=== PATIENT | female | born 1960 | race American Indian/Alaskan Native ===

== ENCOUNTER 2016-08-19 10:16 | Outpatient (CLI) | payer OTHER | END 2016-08-19 10:17 | disposition home or self-care (01) | DX: Z00.00 Encounter for general adult medical examination without abnormal findings (principal); R31.9 Hematuria, unspecified ==

== ENCOUNTER 2016-08-29 10:16 | Outpatient (CLI) | payer OTHER | END 2016-08-29 10:17 | disposition home or self-care (01) | DX: R31.9 Hematuria, unspecified (principal) ==

== ENCOUNTER 2017-02-25 11:20 | Outpatient (CLI) | payer OTHER ==
--- NOTE | 2017-02-26 15:41 | Mammography Report ---
DIGITAL SCREENING MAMMOGRAM: 02/25/2017 CLINICAL INDICATION: A 56-year-old, for screening. COMPARISON: 10/2015, 07/2014, 02/2013. TECHNIQUE: Routine CC and MLO projections were obtained of the breasts. FINDINGS: Scattered fibroglandular tissue is present within the breasts. There are no dominant jesus s, suspicious microcalcifications, or secondary signs of malignancy. In comparison to the previous st udies, there are no significant changes. ASSESSMENT: NO MAMMOGRAPHIC EVIDENCE OF MALIGNANCY. NO SIGNIFICANT INTERVAL CHANGES. RECOMMENDATION: Screening mammography is recommended annually. BIRADS category 1 - negative. STANDARD QUALIFYING STATEMENTS 1. This examination was reviewed with the aid of Computed-Aided Detection (CAD). 2. A negative or benign imaging report should not delay biopsy if clinically suspicious findings are present. Consider surgical consultation if warranted. More than 5% of cancers are not identified by i maging. 3. Dense breasts may obscure an underlying neoplasm. JOB #: [id number] EXT JOB #:[id number]
== END 2017-02-25 11:21 | disposition home or self-care (01) ==
LOC: DI.N 11:20
PROVIDERS: ATTEND Family Medicine
DX: Z12.31 Encounter for screening mammogram for malignant neoplasm of breast (principal)
CPT/HCPCS: 77067

== ENCOUNTER 2018-04-16 09:45 | Outpatient (CLI) | payer OTHER ==
--- NOTE | 2018-04-17 12:31 | Mammography Report ---
Reason: MAMMOGRAM YEARLY SCREENING Procedure Date: 04/16/2018 Accession Number: [id number] / [id number] Procedure: MGN - Screening Mammo Dig Bilat CPT Code: FULL RESULT: EXAM: Screening Mammo Dig Bilat DATE: 04/16/2018 10:19 AM CLINICAL HISTORY: 58-year-old female with history of early menses. TECHNIQUE: Bilateral CC, laterally exaggerated CC, MLO views were obtained. COMPARISON: 02/25/2017, 10/20/2015, 07/26/2014, 02/16/2013. FINDINGS: The breasts demonstrate heterogeneously dense fibroglandular parenchyma bilaterally. No suspicious masses, clustered microcalcifications, or regions of architectural distortion are identified. IMPRESSION: Negative examination RECOMMENDATION: Routine annual screening unless otherwise clinically indicated. BIRADS CATEGORY 1: Negative STANDARD QUALIFYING STATEMENTS: 1. This examination was reviewed with the aid of Computer-Aided Detection (CAD). 2. A negative or benign imaging report should not delay biopsy if clinically suspicious findings are present. Consider surgical consultation if warrented. More than 5% of cancers are not identified by imaging. 3. Dense breasts may obscure an underlying neoplasm. 4. This examination was reviewed without the aid of 3D breast imaging (tomosynthesis).
== END 2018-04-16 09:46 | disposition home or self-care (01) ==
LOC: DI.N 09:45
PROVIDERS: ATTEND Physician Assistant
DX: Z12.31 Encounter for screening mammogram for malignant neoplasm of breast (principal)
CPT/HCPCS: 77067

== ENCOUNTER 2018-10-06 08:00 | Outpatient (CLI) | payer OTHER ==
[2018-10-06 12:51] LABS: HEMOGLOBIN A1C 0.51 g/dL; HEMOGLOBIN A1C % 5.3 % (4.6-6.2)
[2018-10-06 12:54] LABS: BASOPHILS # (AUTO) 0.1 10^3/uL (0.0-0.1); BASOPHILS % (AUTO) 1.5 %; EOSINOPHILS # (AUTO) 0.3 10^3/uL (0.0-0.7); EOSINOPHILS % (AUTO) 3.6 %; HGB - HEMOGLOBIN 13.8 g/dL (12.0-16.0); LYMPHOCYTES # (AUTO) 2.1 10^3/uL (1.5-3.5); LYMPHOCYTES % (AUTO) 26.3 %; MEAN CORPUSCULAR HEMOGLOBIN 30.7 pg (27.0-31.0); MEAN CORPUSCULAR HGB CONC 33.3 g/dL (32.0-36.0); MEAN CORPUSCULAR VOLUME 92.1 fL (81.0-99.0); MEAN PLATELET VOLUME 8.3 fL (7.9-10.8); MONOCYTES # (AUTO) 0.4 10^3/uL (0.0-1.0); NEUTROPHILS # (AUTO) 5.1 10^3/uL (1.5-6.6); NEUTROPHILS % (AUTO) 63.6 %; PLT - PLATELET COUNT 231 10^3/uL (130-450); RED BLOOD COUNT 4.49 10^6/uL (4.20-5.40); RED CELL DISTRIBUTION WIDTH 13.8 % (12.0-15.0)
[2018-10-06 12:57] LABS: ALBUMIN 3.8 g/dL (3.2-5.5); ALBUMIN/GLOBULIN RATIO 1.1 (1.0-2.2); ALKALINE PHOSPHATASE 65 IU/L (42-121); ALT ALANINE AMINOTRANSFERASE 28 IU/L (10-60); AST ASPARTATE AMINOTRANSFERASE 25 IU/L (10-42); BILIRUBIN,TOTAL 0.8 mg/dL (0.2-1.0); BUN - BLOOD UREA NITROGEN 14 mg/dL (6-20); CALCIUM 9.1 mg/dL (8.5-10.3); CARBON DIOXIDE - CO2 27 mmol/L (21-32); CHLORIDE 105 mmol/L (101-111); CHOLESTEROL 194 mg/dL; CREATININE 0.7 mg/dL (0.4-1.0); GFR - MDRD 86 (>89); GLUCOSE 97 mg/dL (70-100); HDL CHOLESTEROL 49 mg/dL; LDL CHOLESTEROL,CALCULATED 123 mg/dL; LDL/HDL RATIO 2.5 (<4.4); SODIUM 140 mmol/L (135-145); TOTAL PROTEIN 7.4 g/dL (6.7-8.2); VLDL CHOLESTEROL 22 mg/dL
== END 2018-10-06 23:59 | disposition home or self-care (01) ==
LOC: LAB.WCP 08:00
PROVIDERS: ATTEND Family Medicine
DX: R73.01 Impaired fasting glucose (principal); E78.6 Lipoprotein deficiency; E78.5 Hyperlipidemia, unspecified; E03.9 Hypothyroidism, unspecified; M25.50 Pain in unspecified joint; R61 Generalized hyperhidrosis; K21.9 Gastro-esophageal reflux disease without esophagitis; R42 Dizziness and giddiness
CPT/HCPCS: 36415; 80053; 80061; 83036; 83721; 84443; 85025

== ENCOUNTER 2019-01-20 11:59 | Outpatient (CLI) | payer OTHER ==
[2019-01-20] MEDS ORDERED: IOPAMIDOL-370 100 ML VIAL ONE (12:30)
--- NOTE | 2019-01-20 16:06 | CT Report ---
Reason: RLQ PAIN, HX KIDNEY STONES Procedure Date: 01/20/2019 Accession Number: [id number] / [id number] Procedure: CT - Abdomen/Pelvis W CPT Code: FULL RESULT: EXAM: CT ABDOMEN AND PELVIS EXAM DATE: 01/20/2019 12:50 PM. CLINICAL HISTORY: RLQ PAIN, HX KIDNEY STONES. COMPARISONS: ABDOMEN/PELVIS W/O 08/29/2016 10:27 AM ABDOMEN/PELVIS W/O 05/07/2013 7:49 AM. TECHNIQUE: Routine helical CT imaging was performed through the abdomen and pelvis. IV contrast: 100 mL Optiray 320. Enteric contrast: No. Reconstructions: Coronal and sagittal. In accordance with CT protocol optimization, one or more of the following dose reduction techniques were utilized for this exam: automated exposure control, adjustment of mA and/or KV based on patient size, or use of iterative reconstructive technique. FINDINGS: Lung Bases: Unremarkable. Liver: Hepatomegaly and hepatic steatosis with focal fatty sparing in the gallbladder fossa. Gallbladder/Bile Ducts: Unremarkable. Spleen: Normal. Pancreas: Normal. Adrenal Glands: Normal. Kidneys: There is a 1.3 by 1.5 cm posterior left renal mass which is not formally characterized but retrospectively can be identified on the 2017 study where it is not convincingly of simple cyst density. Subjectively this hypodense mass demonstrates thickly enhancing septi as seen on image 32 series 6 and image 27 series 3, suspicious for malignancy. The left kidney contains additional hypodensities which are too small to characterize. Peritoneal Cavity/Bowel: There is pancolonic diverticulosis. There is no bowel obstruction. There is no lymphadenopathy by size criteria. There is no free fluid or free air. The appendix is retrocecal and normal throughout its visualized course, a short segment of the appendix is masked by the substantial streak artifact in the pelvis, no surrounding inflammatory changes are seen. Pelvic Organs: Markedly limited evaluation due to streak artifact from bilateral hip prosthesis. The bladder and visualized pelvic organs are within normal limits. Vasculature: No aneurysms or other significant abnormality. Bones: No aggressive osseous lesions are seen. Other: None. IMPRESSION: Uncharacterized left renal mass with features suggestive of but not diagnostic of enhancement when compared to the previous noncontrast CT. Given the small size of the lesion, duration is for ultrasound examination. This would allow for ultrasound surveillance or less likely sonographic demonstration of thinly septated cyst without meaningful soft tissue component. Alternatively, definitive characterization by CT renal mass protocol could be considered at this time. Hepatic steatosis and hepatomegaly. The etiology of the patient's right lower quadrant pain is not identified. There is no evidence of obstructive urinary calculus with the small limitation of streak artifact in the pelvis, however no upstream evidence of obstruction. Diverticulitis is also not identified at this time, appendicitis is felt to be unlikely given the appearance of the appendix. RADIA
[2019-01-20] MEDS ORDERED: IOVERSOL 320 50 ML VIAL PO ONE (16:07)
[2019-01-20] MEDS ORDERED: IOVERSOL 320 100 ML VIAL IVP ONE (16:07)
== END 2019-01-20 12:00 | disposition home or self-care (01) ==
LOC: DI 11:59
PROVIDERS: ATTEND Physician Assistant Medical
DX: R10.31 Right lower quadrant pain (principal); N28.89 Other specified disorders of kidney and ureter; Z87.442 Personal history of urinary calculi
CPT/HCPCS: 74177; Q9967

== ENCOUNTER 2019-01-23 12:24 | Outpatient (CLI) | payer OTHER ==
--- NOTE | 2019-01-24 00:23 | Ultrasound Report ---
Reason: RENAL MASS Procedure Date: 01/23/2019 Accession Number: [id number] / [id number] Procedure: US - Retroperitoneal CPT Code: FULL RESULT: EXAM: RENAL ULTRASOUND EXAM DATE: 01/23/2019 01:20 PM. CLINICAL HISTORY: Renal mass. COMPARISON: ABDOMEN/PELVIS W/ 01/20/2019 12:38 PM. TECHNIQUE: Real-time scanning was performed with static images obtained. FINDINGS: Right Kidney: 11.8 cm. Normal echotexture with no stones, contour-deforming masses, or hydronephrosis. Left Kidney: 12.1 cm. 1.2 cm anechoic superior left renal cyst. 1.3 x 1 x 1.1 cm, and 1 x 0.9 x 1.1 cm hypoechoic lateral mid right renal cyst. Questionable hyperechoic portions in the dependent portions of the mid renal cysts. No solid renal mass is noted. Bladder: Bilateral jets seen. The prevoid bladder volume was 367 cc. The postvoid bladder volume was 14 cc. Other: Study limited by body habitus. Incidental echogenic liver parenchyma. IMPRESSION: 1. Study limited by body habitus. 2. No concerning left-sided renal mass. 1.2 cm simple left upper renal cyst. Two mildly complex mid left renal cyst measuring 1.1 cm and 1.3 cm respectively. Recommend continued surveillance with ultrasound or CT. 3. No right renal mass, stone or hydronephrosis. 4. Normal bladder. RADIA
== END 2019-01-23 12:25 | disposition home or self-care (01) ==
LOC: DI 12:24
PROVIDERS: ATTEND Family Medicine
DX: Q61.02 Congenital multiple renal cysts (principal)
CPT/HCPCS: 76770

== ENCOUNTER 2019-02-02 15:04 | Outpatient (CLI) | payer OTHER ==
[2019-02-02 19:46] LABS: BILIRUBIN,URINE NEGATIVE (NEGATIVE); GLUCOSE, URINE (UA) NEGATIVE (NEGATIVE); KETONES,URINE (UA) NEGATIVE (NEGATIVE); LEUKOCYTE ESTERASE, URINE NEGATIVE (NEGATIVE); NITRITE,URINE NEGATIVE (NEGATIVE); OCCULT BLOOD,URINE SMALL (NEGATIVE); PROTEIN,URINE NEGATIVE (NEGATIVE); UROBILINOGEN,URINE 0.2 (NORMAL) E.U./dL (NORMAL)
[2019-02-02 19:53] LABS: CLARITY,URINE CLEAR (CLEAR)
[2019-02-02 19:54] LABS: BACTERIA,URINE None Seen /HPF (None Seen); RBC,URINE 0-5 /HPF (0-5); SQUAMOUS EPITHELIAL CELL,UR MOD Squamous (<= Few)
== END 2019-02-02 23:59 | disposition home or self-care (01) ==
LOC: LAB.R 15:04
PROVIDERS: ATTEND Family Medicine
DX: R31.9 Hematuria, unspecified (principal)
CPT/HCPCS: 81001; 87086

== ENCOUNTER 2019-09-07 10:17 | Outpatient (CLI) | payer OTHER ==
--- NOTE | 2019-09-07 15:17 | Mammography Report ---
Reason: ROUTINE MAMMO Procedure Date: 09/07/2019 Accession Number: [id number] / [id number] Procedure: MGN - Screening Mammo w/Zach CPT Code: Final Report FULL RESULT: EXAM: Screening Mammo w/Zach DATE: 09/07/2019 10:39 AM CLINICAL HISTORY: Screening encounter. TECHNIQUE: (B) - Bilateral CC and MLO views were obtained. COMPARISON: 04/16/2018 through 02/16/2013. PARENCHYMAL PATTERN: (A) - The breast(s) demonstrate(s) scattered fibroglandular densities. FINDINGS: There are no suspicious masses, calcifications, or areas of distortion. IMPRESSION: Negative examination. BI-RADS category 1. RECOMMENDATION: (ANNUAL) - Recommend routine annual screening mammography. BI-RADS CATEGORY: (1) - Negative. STANDARD QUALIFYING STATEMENTS: 1. This examination was not reviewed with the aid of Computer-Aided Detection (CAD). 2. A negative or benign imaging report should not preclude biopsy if clinically suspicious findings are present. 3. Dense breasts may obscure an underlying neoplasm. 4. This examination was reviewed with the aid of 3D breast imaging (tomosynthesis).
== END 2019-09-07 10:18 | disposition home or self-care (01) ==
LOC: DI.N 10:17
DX: Z12.31 Encounter for screening mammogram for malignant neoplasm of breast (principal)
CPT/HCPCS: 77063; 77067

== ENCOUNTER 2019-11-30 09:26 | Outpatient (CLI) | payer OTHER ==
[2019-11-30 14:09] LABS: BASOPHILS # (AUTO) 0.1 10^3/uL (0.0-0.1); BASOPHILS % (AUTO) 0.7 %; EOSINOPHILS # (AUTO) 0.3 10^3/uL (0.0-0.7); EOSINOPHILS % (AUTO) 4.4 %; HGB - HEMOGLOBIN 14.3 g/dL (12.0-16.0); LYMPHOCYTES # (AUTO) 2.4 10^3/uL (1.5-3.5); LYMPHOCYTES % (AUTO) 35.2 %; MEAN CORPUSCULAR HGB CONC 32.1 g/dL (32.0-36.0); MEAN CORPUSCULAR VOLUME 96.5 fL (81.0-99.0); MEAN PLATELET VOLUME 10.4 fL (7.9-10.8); MONOCYTES # (AUTO) 0.4 10^3/uL (0.0-1.0); MONOCYTES % (AUTO) 5.9 %; NEUTROPHILS # (AUTO) 3.7 10^3/uL (1.5-6.6); NEUTROPHILS % (AUTO) 53.7 %; PLT - PLATELET COUNT 234 10^3/uL (130-450); RED BLOOD COUNT 4.62 10^6/uL (4.20-5.40); RED CELL DISTRIBUTION WIDTH 12.6 % (12.0-15.0); WHITE BLOOD COUNT 6.8 x10^3/uL (4.8-10.8)
[2019-11-30 14:33] LABS: ALBUMIN 3.9 g/dL (3.2-5.5); ALBUMIN/GLOBULIN RATIO 1.1 (1.0-2.2); ALKALINE PHOSPHATASE 70 IU/L (42-121); ALT ALANINE AMINOTRANSFERASE 39 IU/L (10-60); AST ASPARTATE AMINOTRANSFERASE 31 IU/L (10-42); BILIRUBIN,TOTAL 0.8 mg/dL (0.2-1.0); BUN - BLOOD UREA NITROGEN 18 mg/dL (6-20); CALCIUM 8.7 mg/dL (8.5-10.3); CARBON DIOXIDE - CO2 25 mmol/L (21-32); CHLORIDE 108 mmol/L (101-111); CHOL/HDL RATIO 3.4 (<4.4); CHOLESTEROL 196 mg/dL; CREATININE 0.7 mg/dL (0.4-1.0); GLUCOSE 91 mg/dL (70-100); HDL CHOLESTEROL 58 mg/dL; LDL CHOLESTEROL,CALCULATED 119 mg/dL; LDL/HDL RATIO 2.1 (<4.4); SODIUM 142 mmol/L (135-145); TOTAL PROTEIN 7.5 g/dL (6.7-8.2); VLDL CHOLESTEROL 19 mg/dL
== END 2019-11-30 23:59 | disposition home or self-care (01) ==
LOC: LAB.WCP 09:26
PROVIDERS: ATTEND Physician Assistant Medical
DX: E78.5 Hyperlipidemia, unspecified (principal); K21.9 Gastro-esophageal reflux disease without esophagitis
CPT/HCPCS: 36415; 80053; 80061; 83721; 84443; 85025

== ENCOUNTER 2020-01-11 13:01 | Outpatient (CLI) | payer OTHER ==
--- NOTE | 2020-01-11 15:14 | Ultrasound Report ---
PROCEDURE: Retroperitoneal INDICATIONS: RENAL CYST TECHNIQUE: Real-time scanning was performed of the retroperitoneal organs, with image documentation. COMPARISON: Prior ultrasound 01/23/[address] 01/20/2019 reviewed.. FINDINGS: Kidneys: Kidneys are normal in size. Right kidney measures 10.8 cm long; left kidney measures 11.8 cm long. Right renal cortical thickness is 1.4 cm; left renal cortical thickness is 1.4 cm. No brannon d masses, hydronephrosis, or nephrolithiasis. There is a finding of 3 cysts at the left kidney measur ing up to 8 mm, 9 mm, and 13 mm respectively. Pancreas: Visualized portions of the pancreas are sonographically normal. Aorta: Visualized aorta is normal in caliber at 3 cm or less. Iliac arteries: Proximal common iliac arteries are normal in caliber at 2.5 cm or less. IVC: Intrahepatic inferior vena cava is patent. Miscellaneous: No free abdominal fluid. Note is made of a prevoid bladder volume of 102 cc, with a p ostvoid residual of 0. Prostate size is 4.0 x 5.7 x 8.5 cm without focal mass lesion IMPRESSION: 3 cysts involve the left renal cortex, the largest of which is 13 mm in maximal dimension. No solid m ass lesion, hydronephrosis or nephrolithiasis is found. Normal bladder function. Reviewed by: Heber Gallegos MD on 01/11/2020 3:13 PM PDT Approved by: Heber Gallegos MD on 01/11/2020 3:13 PM PDT Station ID: [id number]
== END 2020-01-11 13:02 | disposition home or self-care (01) ==
LOC: DI 13:01
PROVIDERS: ATTEND Physician Assistant Medical
DX: N28.1 Cyst of kidney, acquired (principal)
CPT/HCPCS: 76770

== ENCOUNTER 2020-10-02 12:20 | Outpatient (CLI) | payer OTHER ==
[2020-10-02] MEDS ORDERED: SODIUM CHLORIDE 0.9% IV ONE (14:15)
[2020-10-02] MEDS ORDERED: SINCALIDE IV ONE (14:15)
--- NOTE | 2020-10-02 16:07 | Nuclear Medicine Report ---
PROCEDURE: Hepatobiliary HIDA w/ Rx INDICATIONS: ABD PAIN, RUQ RADIOPHARMACEUTICAL: 5.43 mCi Tc-99m meprofenin i.v. and 2.11 ?g sincalide i.v. TECHNIQUE: Following intravenous administration of Tc-99m meprofenin, sequential anterior abdominal images were obtained through 55 minutes. To evaluate the contractile response of the gallbladder in response to Cholecystokinin (CCK), 11 microgram sincalide (0.02 ?g/kg) was administered by slow intra venous infusion approximately K5 minutes after the administration of the radiopharmaceutical. Sequen tial imaging was continued for 30 minutes after the start of CCK infusion. Gallbladder ejection frac tion was calculated. COMPARISON: None. FINDINGS: Biliary scan: There is normal tracer uptake and excretion by the liver. There is normal visualizati on of the intrahepatic ducts, common bile duct, and gallbladder. There is normal tracer transit into the duodenum. CCK stimulation: There is diminished contractile response of the gallbladder to CCK infusion. The c alculated gallbladder ejection fraction is 6%; normal values are above 35%. IMPRESSION: Abnormal study demonstrating diminished contractile response of gallbladder to CCK infusi on with gallbladder ejection fraction of 6%. Findings nonspecific and may be related to chronic tenzin cystitis versus biliary dyskinesia. Reviewed by: Krystin Dodd MD, PhD on 10/02/2020 4:05 PM PDT Approved by: Krystin Dodd MD, PhD on 10/02/2020 4:05 PM PDT Station ID: [id number]
== END 2020-10-02 12:21 | disposition home or self-care (01) ==
LOC: DI 12:20
PROVIDERS: ATTEND Physician Assistant Medical
DX: R10.11 Right upper quadrant pain (principal)
CPT/HCPCS: 78227; J7040

== ENCOUNTER 2021-01-24 09:25 | Outpatient (CLI) | payer OTHER ==
[2021-01-24 12:19] LABS: BASOPHILS # (AUTO) 0.1 10^3/uL (0.0-0.1); BASOPHILS % (AUTO) 0.6 %; EOSINOPHILS # (AUTO) 0.4 10^3/uL (0.0-0.7); EOSINOPHILS % (AUTO) 5.1 %; HCT - HEMATOCRIT 47.2 % (37.0-47.0); HGB - HEMOGLOBIN 15.2 g/dL (12.0-16.0); LYMPHOCYTES # (AUTO) 2.7 10^3/uL (1.5-3.5); LYMPHOCYTES % (AUTO) 33.6 %; MEAN CORPUSCULAR HEMOGLOBIN 30.3 pg (27.0-31.0); MEAN CORPUSCULAR HGB CONC 32.2 g/dL (32.0-36.0); MEAN PLATELET VOLUME 10.4 fL (7.9-10.8); MONOCYTES # (AUTO) 0.5 10^3/uL (0.0-1.0); MONOCYTES % (AUTO) 6.5 %; NEUTROPHILS # (AUTO) 4.3 10^3/uL (1.5-6.6); NEUTROPHILS % (AUTO) 54.1 %; PLT - PLATELET COUNT 248 10^3/uL (130-450); RED BLOOD COUNT 5.02 10^6/uL (4.20-5.40); RED CELL DISTRIBUTION WIDTH 12.4 % (12.0-15.0)
[2021-01-24 12:49] LABS: THYROID STIMULATING HORMONE 2.44 uIU/mL (0.34-5.60)
[2021-01-24 12:57] LABS: ALBUMIN 4.3 g/dL (3.2-5.5); ALBUMIN/GLOBULIN RATIO 1.2 (1.0-2.2); ALKALINE PHOSPHATASE 74 IU/L (42-121); ALT ALANINE AMINOTRANSFERASE 32 IU/L (10-60); AST ASPARTATE AMINOTRANSFERASE 23 IU/L (10-42); BILIRUBIN,TOTAL 0.7 mg/dL (0.2-1.0); BUN - BLOOD UREA NITROGEN 18 mg/dL (6-20); CALCIUM 9.3 mg/dL (8.5-10.3); CARBON DIOXIDE - CO2 26 mmol/L (21-32); CHLORIDE 103 mmol/L (101-111); CHOL/HDL RATIO 4.5 (<4.4); CHOLESTEROL 219 mg/dL; CREATININE 0.8 mg/dL (0.4-1.0); GFR - MDRD 73 (>89); GLUCOSE 107 mg/dL (70-100); HDL CHOLESTEROL 49 mg/dL; LDL CHOLESTEROL,CALCULATED 143 mg/dL; LDL/HDL RATIO 2.9 (<4.4); POTASSIUM 3.9 mmol/L (3.5-5.0); SODIUM 139 mmol/L (135-145); TRIGLYCERIDES 136 mg/dL; VLDL CHOLESTEROL 27 mg/dL
== END 2021-01-24 23:59 | disposition home or self-care (01) ==
LOC: LAB.WCP 09:25
PROVIDERS: ATTEND Physician Assistant Medical
DX: E78.5 Hyperlipidemia, unspecified (principal); E03.9 Hypothyroidism, unspecified; K21.9 Gastro-esophageal reflux disease without esophagitis
CPT/HCPCS: 36415; 80053; 80061; 83721; 84443; 85025

== ENCOUNTER 2021-06-06 08:00 | Outpatient (CLI) | payer OTHER ==
[2021-06-06 12:59] LABS: ALBUMIN/GLOBULIN RATIO 1.1 (1.0-2.2); ALKALINE PHOSPHATASE 61 IU/L (42-121); ALT ALANINE AMINOTRANSFERASE 31 IU/L (10-60); AST ASPARTATE AMINOTRANSFERASE 25 IU/L (10-42); BILIRUBIN,TOTAL 0.7 mg/dL (0.2-1.0); BUN - BLOOD UREA NITROGEN 14 mg/dL (6-20); CALCIUM 9.6 mg/dL (8.5-10.3); CARBON DIOXIDE - CO2 28 mmol/L (21-32); CHLORIDE 105 mmol/L (101-111); CHOL/HDL RATIO 3.8 (<4.4); CHOLESTEROL 204 mg/dL; CREATININE 0.9 mg/dL (0.4-1.0); GFR - MDRD 64 (>89); GLUCOSE 94 mg/dL (70-100); HDL CHOLESTEROL 54 mg/dL; LDL CHOLESTEROL,CALCULATED 130 mg/dL; LDL/HDL RATIO 2.4 (<4.4); SODIUM 141 mmol/L (135-145); TOTAL PROTEIN 7.5 g/dL (6.7-8.2); TRIGLYCERIDES 98 mg/dL; VLDL CHOLESTEROL 20 mg/dL
== END 2021-06-06 23:59 ==
LOC: LAB.WCP 08:00
PROVIDERS: ATTEND Physician Assistant Medical
DX: E78.5 Hyperlipidemia, unspecified (principal)
CPT/HCPCS: 36415; 80053; 80061; 83721

== ENCOUNTER 2021-09-06 08:23 | Outpatient (CLI) | payer OTHER ==
[2021-09-06 13:01] LABS: THYROID STIMULATING HORMONE 0.06 uIU/mL (0.34-5.60)
[2021-09-06 13:02] LABS: ALBUMIN/GLOBULIN RATIO 1.1 (1.0-2.2); ALKALINE PHOSPHATASE 73 IU/L (42-121); ALT ALANINE AMINOTRANSFERASE 64 IU/L (10-60); AST ASPARTATE AMINOTRANSFERASE 40 IU/L (10-42); BUN - BLOOD UREA NITROGEN 19 mg/dL (6-20); CALCIUM 9.2 mg/dL (8.5-10.3); CARBON DIOXIDE - CO2 27 mmol/L (21-32); CHLORIDE 104 mmol/L (101-111); CHOL/HDL RATIO 3.3 (<4.4); CHOLESTEROL 184 mg/dL; CREATININE 0.7 mg/dL (0.4-1.0); GFR - MDRD 85 (>89); GLUCOSE 103 mg/dL (70-100); HDL CHOLESTEROL 56 mg/dL; LDL CHOLESTEROL,CALCULATED 108 mg/dL; LDL/HDL RATIO 1.9 (<4.4); POTASSIUM 3.8 mmol/L (3.5-5.0); SODIUM 141 mmol/L (135-145); TOTAL PROTEIN 7.5 g/dL (6.7-8.2); TRIGLYCERIDES 102 mg/dL; VLDL CHOLESTEROL 20 mg/dL
[2021-09-06 13:17] LABS: BASOPHILS # (AUTO) 0.1 10^3/uL (0.0-0.1); EOSINOPHILS # (AUTO) 0.3 10^3/uL (0.0-0.7); EOSINOPHILS % (AUTO) 4.4 %; HGB - HEMOGLOBIN 14.5 g/dL (12.0-16.0); LYMPHOCYTES # (AUTO) 2.3 10^3/uL (1.5-3.5); LYMPHOCYTES % (AUTO) 36.6 %; MEAN CORPUSCULAR HEMOGLOBIN 30.7 pg (27.0-31.0); MEAN CORPUSCULAR HGB CONC 32.2 g/dL (32.0-36.0); MEAN CORPUSCULAR VOLUME 95.3 fL (81.0-99.0); MEAN PLATELET VOLUME 10.6 fL (7.9-10.8); MONOCYTES # (AUTO) 0.5 10^3/uL (0.0-1.0); MONOCYTES % (AUTO) 8.8 %; PLT - PLATELET COUNT 217 10^3/uL (130-450); RED BLOOD COUNT 4.72 10^6/uL (4.20-5.40); RED CELL DISTRIBUTION WIDTH 12.6 % (12.0-15.0); WHITE BLOOD COUNT 6.2 x10^3/uL (4.8-10.8)
[2021-09-06 13:40] LABS: FREE T4 (FREE THYROXINE) 1.22 ng/dL (0.58-1.64)
== END 2021-09-06 08:24 | disposition home or self-care (01) ==
LOC: LAB.N 08:23
PROVIDERS: ATTEND Physician Assistant Medical
DX: Z00.00 Encounter for general adult medical examination without abnormal findings (principal); E78.5 Hyperlipidemia, unspecified; E03.9 Hypothyroidism, unspecified
CPT/HCPCS: 36415; 80053; 80061; 83721; 84439; 84443; 85025

== ENCOUNTER 2022-01-09 10:44 | Outpatient (CLI) | payer OTHER ==
[2022-01-09 18:05] LABS: THYROID STIMULATING HORMONE 1.29 uIU/mL (0.34-5.60)
== END 2022-01-09 10:45 | disposition home or self-care (01) ==
LOC: LAB.N 10:44
PROVIDERS: ATTEND Physician Assistant Medical
DX: E03.9 Hypothyroidism, unspecified (principal)
CPT/HCPCS: 36415; 84443

== ENCOUNTER 2022-01-31 08:54 | Outpatient (CLI) | payer OTHER ==
--- NOTE | 2022-02-01 12:35 | Mammography Report ---
BILATERAL DIGITAL SCREENING MAMMOGRAM 3D/2D: 01/31/2022 CLINICAL: Routine screening. Comparison is made to exams dated: 09/07/2019 mammogram, 04/16/2018 mammogram, 02/25/2017 mammogram, mammogram, 08/03/2014 mammogram, and 02/16/2013 mammogram - [facility]. The tissue of both breasts is predominantly fatty. No significant masses, calcifications, or other findings are seen in either breast. There has been no significant interval change. IMPRESSION: NEGATIVE There is no mammographic evidence of malignancy. A 1 year screening mammogram is recommended. Based on the Tyrer Cuzick model (a risk assessment model) the patients lifetime risk is 5.6% and her 10 year risk is 2.2%. According to the ACR, ACS, and NCCN guidelines, an annual breast MRI exam colin g with mammogram is recommended if the patients lifetime risk is 20% or greater. This exam was interpreted at Station ID: [id number]. NOTE: For mammograms, a report in lay terms will be sent to the patient. Approximately 15% of breast malignancies will not be visualized mammographically. In the management of a palpable breast mass, a negative mammogram must not discourage biopsy of a clinically suspicious lesion. Electronically Signed By: Nikhil Atwood acr/penrad:01/31/2022 11:47:53 ACR BI-RADS Category 1: Negative 3341F PARENCHYMAL PATTERN: (F) - The breast(s) demonstrate(s) diffuse fatty replacement. BI-RADS CATEGORY: (1) - 1 RECOMMENDATION: (ANNUAL) - Recommend routine annual screening mammography. [id number] 1 year screening LATERALITY: (B)
== END 2022-01-31 08:55 | disposition home or self-care (01) ==
LOC: DI.N 08:54
DX: Z12.31 Encounter for screening mammogram for malignant neoplasm of breast (principal)

== ENCOUNTER 2022-06-05 07:31 | Outpatient (CLI) | payer OTHER ==
[2022-06-05 12:59] LABS: ALBUMIN 3.6 g/dL (3.2-5.5); ALBUMIN/GLOBULIN RATIO 0.9 (1.0-2.2); ALKALINE PHOSPHATASE 65 IU/L (42-121); ALT ALANINE AMINOTRANSFERASE 30 IU/L (10-60); AST ASPARTATE AMINOTRANSFERASE 27 IU/L (10-42); BILIRUBIN,TOTAL 0.7 mg/dL (0.2-1.0); BUN - BLOOD UREA NITROGEN 19 mg/dL (6-20); CARBON DIOXIDE - CO2 26 mmol/L (21-32); CHLORIDE 105 mmol/L (101-111); CHOL/HDL RATIO 4.3 (<4.4); CHOLESTEROL 187 mg/dL; CREATININE 0.7 mg/dL (0.4-1.0); GFR - MDRD 85 (>89); GLUCOSE 94 mg/dL (70-100); HDL CHOLESTEROL 44 mg/dL; LDL CHOLESTEROL,CALCULATED 123 mg/dL; LDL/HDL RATIO 2.8 (<4.4); POTASSIUM 3.7 mmol/L (3.5-5.0); SODIUM 141 mmol/L (135-145); TOTAL PROTEIN 7.4 g/dL (6.7-8.2); TRIGLYCERIDES 102 mg/dL; VLDL CHOLESTEROL 20 mg/dL
== END 2022-06-05 07:32 | disposition home or self-care (01) ==
LOC: LAB.N 07:31
PROVIDERS: ATTEND Physician Assistant Medical
DX: E03.9 Hypothyroidism, unspecified (principal); R73.01 Impaired fasting glucose
CPT/HCPCS: 36415; 80053; 80061; 83721; 84443

== ENCOUNTER 2022-10-28 08:00 | Outpatient (CLI) | payer OTHER ==
[2022-10-29 05:13] LABS: HSV 1 IGG TYPE SPEC <0.91 index (0.00-0.90)
== END 2022-10-28 23:59 | disposition home or self-care (01) ==
LOC: LAB.N 08:00
PROVIDERS: ATTEND Physician Assistant
DX: R21 Rash and other nonspecific skin eruption (principal)
CPT/HCPCS: 36415; 86695; 86696

== ENCOUNTER 2023-01-09 10:15 | Outpatient (CLI) | payer OTHER ==
--- NOTE | 2023-01-10 09:42 | Mammography Report ---
BILATERAL DIGITAL SCREENING MAMMOGRAM 3D/2D: 01/09/2023 CLINICAL: Routine screening. Comparison is made to exams dated: 01/31/2022 mammogram, 09/07/2019 mammogram, 04/16/2018 mammogram, mammogram, and 10/20/2015 mammogram - [facility]. There are scattered areas of fibroglandular density in both breasts (category b / 25%-50% glandular t issue). No significant masses, calcifications, or other findings are seen in either breast. There has been no significant interval change. IMPRESSION: NEGATIVE There is no mammographic evidence of malignancy. A 1 year screening mammogram is recommended. Based on the Tyrer Cuzick model (a risk assessment model) the patients lifetime risk is 8.2% and her 10 year risk is 3.4%. According to the ACR, ACS, and NCCN guidelines, an annual breast MRI exam colin g with mammogram is recommended if the patients lifetime risk is 20% or greater. This exam was interpreted at Station ID: [id number]. NOTE: For mammograms, a report in lay terms will be sent to the patient. Approximately 15% of breast malignancies will not be visualized mammographically. In the management of a palpable breast mass, a negative mammogram must not discourage biopsy of a clinically suspicious lesion. Electronically Signed By: Pako zamorano/luis:01/09/2023 11:54:43 letter sent: No_Letter ACR BI-RADS Category 1: Negative 3341F PARENCHYMAL PATTERN: (A) - The breast(s) demonstrate(s) scattered fibroglandular densities. BI-RADS CATEGORY: (1) - 1 Mammogram [id number] 1 year screening LATERALITY: (B)
== END 2023-01-09 10:16 | disposition home or self-care (01) ==
LOC: DI.N 10:15
DX: Z12.31 Encounter for screening mammogram for malignant neoplasm of breast (principal)

== ENCOUNTER 2023-06-17 09:17 | Day surgery (SDC) | payer OTHER ==
[2023-06-17] MEDS ORDERED: LACTATED RINGERS 1,000 ML IV ONE ×2 (09:30)
--- NOTE | 2023-06-17 10:49 | ANESTHESIA ---
Pre-Anesthesia VS, & Labs - Diagnosis screening - Procedure colonoscopy Vital Signs: Temp Pulse Resp BP Pulse Ox O2 Flow Rate 36.0 C L 86 17 137/73 H 93 06/17/23 09:40 06/17/23 09:40 06/17/23 09:40 06/17/23 09:40 06/17/23 09:40 Height: 5 ft 6 in Weight (kg): 100.7 kg Body Mass Index: 35.8 BMI Classification: Obese - Is Patient ?: No (post menopausal) - Lab Results Lab results reviewed: Yes Home Medications and Allergies Home Medications: Ambulatory Orders valACYclovir [Valtrex] 500 mg PO DAILY 06/16/23 Levothyroxine Sodium [Synthroid] 25 mcg PO DAILY 05/07/13 predniSONE [Prednisone] 1 mg PO DAILY 05/07/13 valACYclovir [Valtrex] 500 mg PO DAILY 06/16/23 Allergies/Adverse Reactions: Allergies Allergy/AdvReac Type Severity Reaction Status Date / Time codeine [Codeine] AdvReac Mild Nausea Verified 06/16/23 13:16 Anes History & Medical History - Anesthetic History Anesthesia Complications: reports: No previous complications Family history of Anesthesia Complications: Denies Family history of Malignant Hyperthermia: Denies - Medical History Cardiovascular: reports: Hypertension Pulmonary: reports: None Gastrointestinal: reports: None, GERD (cont. w omeprazole) Urinary: reports: Incontinence Neuro: reports: None Musculoskeletal: reports: None, Other Endocrine/Autoimmune: reports: HyPOthyroidism Skin: reports: Herpes zoster Smoking Status: Never smoker - Surgical History General: reports: Cholecystectomy Urologic: reports: Ureterolithotomy (stones) Orthopedic: reports: Hip replacement Results - EKG Results EKG Comparison: Reviewed EKG Exam General: Alert Dental: WNL Mouth Openin Fingerbreadth Neck Mobility: Normal Mallampati classification: II Thyromental Distance: 4-6 cm Mental/Cognitive Status: Alert/Oriented X3, Lethargic Cognitive Status: Within normal limits Plan Anesthesia Type: General, MAC Consent for Procedure(s) Verified and Reviewed: Yes Code Status: Attempt Resuscitation ASA classification: 2-Mild systemic disease Is this case an emergency?: No
[2023-06-17] MEDS ORDERED: PROPOFOL 500 MG/50 ML 500 MG/50 ML VIAL ONE (11:25)
[2023-06-17] MEDS ORDERED: SIMETHICONE 40 MG/0.6 ML 15 ML BOTTLE ONE (11:49)
[2023-06-17] MEDS ORDERED: LACTATED RINGERS 600 ML IV ONE (12:07)
[2023-06-17 12:32] VITALS: BP 136/77; O2SAT 97
--- NOTE | 2023-06-17 14:08 | ANESTHESIA POST OP EVALUATION ---
Anesthesia Post Eval - Post Anesthesia Eval Vitals: Last Vital Signs Temp 36.4 C L 06/17/23 12:27 Pulse 73 06/17/23 12:27 Resp 16 06/17/23 12:27 BP 136/77 H 06/17/23 12:27 Pulse Ox 97 06/17/23 12:27 O2 Flow Rate CV Function Including HR & BP: Stable Pain Control: Satisfactory Nausea & Vomiting: Negative Mental Status: Baseline Respiratory Status: Airway Patent Hydration Status: Satisfactory Anesthesia Complications: None
== END 2023-06-17 09:18 | disposition home or self-care (01) ==
LOC: SDS 09:17
PROVIDERS: ATTEND Surgery
PROC: 0DBP8ZZ Excision of Rectum, Via Natural or Artificial Opening Endoscopic (ICD-10-PCS; principal; 2023-06-17 10:30)
DX: Z12.11 Encounter for screening for malignant neoplasm of colon (principal); K62.1 Rectal polyp; K57.30 Diverticulosis of large intestine without perforation or abscess without bleeding; E66.9 Obesity, unspecified; Z68.35 Body mass index [BMI] 35.0-35.9, adult
CPT/HCPCS: 45380; A9270; J7120

== ENCOUNTER 2023-07-10 08:00 | Outpatient (CLI) | payer OTHER ==
[2023-07-10 18:01] LABS: BILIRUBIN,URINE NEGATIVE (NEGATIVE); GLUCOSE, URINE (UA) NEGATIVE (NEGATIVE); KETONES,URINE (UA) NEGATIVE (NEGATIVE); LEUKOCYTE ESTERASE, URINE NEGATIVE (NEGATIVE); NITRITE,URINE NEGATIVE (NEGATIVE); OCCULT BLOOD,URINE SMALL (NEGATIVE); PROTEIN,URINE NEGATIVE (NEGATIVE); UROBILINOGEN,URINE 1 (NORMAL) E.U./dL (NORMAL)
[2023-07-10 18:04] LABS: CLARITY,URINE CLEAR (CLEAR)
[2023-07-10 18:18] LABS: BACTERIA,URINE Few /HPF (None Seen); RBC,URINE 0-5 /HPF (0-5); SQUAMOUS EPITHELIAL CELL,UR MOD Squamous (<= Few); WBC,URINE 0-3 /HPF (0-5)
== END 2023-07-10 23:59 | disposition home or self-care (01) ==
LOC: LAB.WCP 08:00
PROVIDERS: ATTEND Nurse Practitioner
DX: R10.31 Right lower quadrant pain (principal); R10.2 Pelvic and perineal pain
CPT/HCPCS: 81001; 87086

== ENCOUNTER 2023-07-10 14:35 | Outpatient (CLI) | payer OTHER ==
[2023-07-10 17:42] LABS: BASOPHILS # (AUTO) 0.1 10^3/uL (0.0-0.1); BASOPHILS % (AUTO) 0.9 %; EOSINOPHILS # (AUTO) 0.3 10^3/uL (0.0-0.7); EOSINOPHILS % (AUTO) 4.2 %; HCT - HEMATOCRIT 44.1 % (37.0-47.0); LYMPHOCYTES # (AUTO) 2.7 10^3/uL (1.5-3.5); LYMPHOCYTES % (AUTO) 34.8 %; MEAN CORPUSCULAR HEMOGLOBIN 30.4 pg (27.0-31.0); MEAN CORPUSCULAR HGB CONC 31.7 g/dL (32.0-36.0); MEAN CORPUSCULAR VOLUME 95.7 fL (81.0-99.0); MONOCYTES # (AUTO) 0.5 10^3/uL (0.0-1.0); MONOCYTES % (AUTO) 6.2 %; NEUTROPHILS # (AUTO) 4.2 10^3/uL (1.5-6.6); NEUTROPHILS % (AUTO) 53.6 %; PLT - PLATELET COUNT 248 10^3/uL (130-450); RED BLOOD COUNT 4.61 10^6/uL (4.20-5.40); RED CELL DISTRIBUTION WIDTH 12.4 % (12.0-15.0); WHITE BLOOD COUNT 7.8 x10^3/uL (4.8-10.8)
[2023-07-10 17:56] LABS: ALBUMIN 4.1 g/dL (3.2-5.5); ALBUMIN/GLOBULIN RATIO 1.2 (1.0-2.2); BILIRUBIN,TOTAL 0.3 mg/dL (0.2-1.0); CALCIUM 9.4 mg/dL (8.5-10.3); CREATININE 0.8 mg/dL (0.6-1.3); POTASSIUM 3.8 mmol/L (3.5-4.5); TOTAL PROTEIN 7.4 g/dL (6.4-8.9)
== END 2023-07-10 14:36 | disposition home or self-care (01) ==
LOC: LAB.N 14:35
PROVIDERS: ATTEND Nurse Practitioner
DX: R10.31 Right lower quadrant pain (principal); R10.2 Pelvic and perineal pain
CPT/HCPCS: 36415; 80053; 81001; 82150; 83690; 85025; 87086

== ENCOUNTER 2023-07-26 08:42 | Outpatient (CLI) | payer OTHER ==
--- NOTE | 2023-07-27 11:59 | Ultrasound Report ---
PROCEDURE: Pelvic w/Transvaginal INDICATIONS: INGUINAL PAIN, RLQ ABD PAIN TECHNIQUE: Real-time scanning was performed of the pelvic organs, with image documentation. Additional endovagi nal scanning was necessary due to incomplete visualization of the adnexal and endometrial structures by transabdominal scanning. COMPARISON: Pelvic ultrasound on November 18, 2015. FINDINGS: The patient was not prepped for a transabdominal exam, limiting evaluation. Uterus: Uterus is anteverted and normal in size at 7.6 x 3.6 x 4.4 cm. The myometrium is heterogene ous. The endometrium measures 4 mm in combined thickness. Cystic changes in the lower uterine segme nt. Nabothian cysts in the cervix. Mid posterior intramural fibroid measuring 0.8 x 0.8 x 0.6 cm. Ovaries: Bilateral ovaries are not seen secondary to bowel gas. Other: No pathologic free abdominal or pelvic fluid. IMPRESSION: The patient was not prepped for a transabdominal exam, limiting evaluation. 1.Uterus is normal in size with heterogeneous endometrial thickness of 4 mm. Heterogeneous myometrium with cystic changes in the lower uterine segment which is nonspecific. 2.Mid posterior intramural fibroid measuring 0.8 x 0.8 x 0.6 cm. 3.Bilateral ovaries are not seen secondary to bowel gas. Reviewed by: Marlo Rahman MD on 07/27/2023 11:58 AM PST Approved by: Marlo Rahman MD on 07/27/2023 11:58 AM PST Station ID: [id number]
--- NOTE | 2023-07-27 12:01 | Ultrasound Report ---
PROCEDURE: Abdomen Complete INDICATIONS: INGUINAL PAIN, RLQ ABD PAIN TECHNIQUE: Real-time scanning was performed of the abdominal and retroperitoneal organs, with image documentatio n. COMPARISON: None. FINDINGS: Evaluation is limited secondary to bowel gas and patient body habitus. Liver: Liver is enlarged measuring 19.9 cm and homogeneous in echotexture. Liver parenchyma is diff usely echogenic. Main portal vein is patent with hepatopedal flow. Gallbladder: Absent. Biliary ducts: Intrahepatic bile ducts are non-dilated. Extrahepatic bile duct caliber measures 5 m m. Normal is 6-7 mm or less in diameter, or 10 mm or less post-cholecystectomy. Pancreas: Visualized portions of the pancreas are sonographically normal. Spleen: Spleen is normal in size and homogeneous in echotexture. Kidneys: Kidneys are normal in size and echotexture. Right kidney measures 10.7 cm long; left kidne y measures 11.5 cm long. No hydronephrosis or nephrolithiasis. No solid masses. No complex renal cy stic lesions which require follow-up. Aorta: Not well seen secondary to bowel gas and patient body habitus. Iliacs: Not well seen secondary to bowel gas and patient body habitus. IVC: Intrahepatic inferior vena cava is patent. Miscellaneous: No free abdominal fluid. IMPRESSION: Evaluation is limited secondary to bowel gas and patient body habitus. 1.No sonographic abnormality in the right lower quadrant. 2.Liver is enlarged with diffusely echogenic parenchyma which is nonspecific and may be seen in the s etting of parenchymal disease such as steatosis. 3.Cholecystectomy. No intrahepatic biliary ductal dilatation. 4.No hydronephrosis. Reviewed by: Marlo Rahman MD on 07/27/2023 12:00 PM PST Approved by: Marlo Rahman MD on 07/27/2023 12:00 PM PST Station ID: [id number]
--- NOTE | 2023-07-27 12:05 | Ultrasound Report ---
PROCEDURE: Pelvic Limited INDICATIONS: INQUINAL PAIN, RLQ ABD PAIN TECHNIQUE: Real-time transabdominal scanning was performed of the pelvic organs, with image documentation. COMPARISON: CT abdomen and pelvis on January 20, 2019. FINDINGS: Evaluation is limited secondary to bowel gas artifact. In the area of pain at the site of prior mesh repair, there is a questionable defect; however, given this is at the site of prior mesh repair this may be expected postsurgical changes. No definitive son ographic abnormality. IMPRESSION: Evaluation is limited secondary to bowel gas artifact. Within these limitations, there is a questiona ble defect; however, given this is at the site of prior mesh repair this may be expected postsurgical changes. No definite sonographic abnormality. If clinical symptoms persist, consider a CT for further evaluation. Reviewed by: Marlo Rahman MD on 07/27/2023 12:04 PM PST Approved by: Marlo Rahman MD on 07/27/2023 12:04 PM PST Station ID: [id number]
== END 2023-07-26 08:43 | disposition home or self-care (01) ==
LOC: DI 08:42
PROVIDERS: ATTEND Nurse Practitioner
DX: R10.31 Right lower quadrant pain (principal); R10.2 Pelvic and perineal pain; D25.1 Intramural leiomyoma of uterus; R16.0 Hepatomegaly, not elsewhere classified; Z90.49 Acquired absence of other specified parts of digestive tract

== ENCOUNTER 2023-08-12 11:04 | Outpatient (CLI) | payer OTHER ==
[2023-08-12 11:41] LABS: CREATININE 0.8 mg/dL (0.6-1.3)
--- NOTE | 2023-08-12 12:10 | XRAY Report ---
PROCEDURE: Chest 2V INDICATIONS: CHEST PAIN TECHNIQUE: 2 views of the chest were acquired. COMPARISON: None. FINDINGS: Surgical changes and devices: None. Lungs and pleura: No pleural effusions or pneumothorax. Lungs are clear. Mediastinum: Mediastinal contours appear normal. Heart size is normal. Bones and chest wall: No suspicious bony lesions. Overlying soft tissues appear unremarkable. IMPRESSION: No acute cardiopulmonary process. Reviewed by: Abilio Marquez MD on 08/12/2023 12:08 PM [facility] Approved by: Abilio Marquez MD on 08/12/2023 12:08 PM [facility] Station ID: [id number]
== END 2023-08-12 11:05 | disposition home or self-care (01) ==
LOC: LAB 11:04
PROVIDERS: ATTEND Nurse Practitioner
DX: R10.2 Pelvic and perineal pain (principal); R10.31 Right lower quadrant pain; R07.9 Chest pain, unspecified
CPT/HCPCS: 36415; 82565

== ENCOUNTER 2023-08-15 13:03 | Outpatient (CLI) | payer OTHER ==
[2023-08-15] MEDS ORDERED: DIATRIZOATE MEGLU/DIATRIZO SOD 30 ML BOTTLE PO ONE (13:21)
[2023-08-15] MEDS ORDERED: iohexoL-300 100 ML VIAL ONE (13:21)
[2023-08-15] MEDS: DIATRIZOATE MEGLU/DIATRIZO SOD 30 ML BOTTLE PO ONE (14:31)
[2023-08-15] MEDS: iohexoL-300 100 ML VIAL IVP ONE (14:32)
--- NOTE | 2023-08-15 16:51 | CT Report ---
PROCEDURE: Abdomen/Pelvis W INDICATIONS: PELVIC PAIN, INGUINAL PAIN, ABD PAIN CONTRAST: 100ml omni 300 TECHNIQUE: After the administration of intravenous contrast, a CT scan of the abdomen and pelvis was performed. Images were recorded and evaluated at appropriate window settings. Reformats: coronal and sagittal. F or radiation dose reduction, the following was used: automated exposure control, adjustment of mA and /or kV according to patient size. COMPARISON: CT abdomen and pelvis dated 01/20/2019. FINDINGS: Image quality: Slightly limited due to streak artifact from hip arthroplasty hardware bilaterally. Lower chest: Unremarkable. Liver: No solid mass. Gallbladder and biliary tree: The gallbladder is not seen and may be surgically absent Spleen: No splenomegaly. Pancreas: No pancreatic ductal dilation. Adrenals: No adrenal nodule. Kidneys and ureters: No hydronephrosis. No renal cystic lesion which requires follow up. No solid mas s. Stomach, bowel and peritoneum: No bowel distension. No pathologic free fluid. Visualized portion of t he appendix appears unremarkable Lymph nodes: No central or retroperitoneal adenopathy. Vessels: No infrarenal aortic aneurysm. PELVIS Reproductive organs: Not visualized due to streak artifact from bilateral hip arthroplasty hardware. Bladder: Unable to prior due to streak artifact from hip arthroplasty hardware. Pelvic lymph nodes: No pelvic adenopathy by size criteria. Bones: Bilateral hip arthroplasty hardware noted. L5-S1 DJD. Other: No significant ventral or inguinal hernia. IMPRESSION: 1. Evaluation of the pelvis is slightly limited due to streak artifact from hip arthroplasty hardware . 2. No CT findings to explain patient's symptomology. 3. Degenerative disc disease at L5-S1 Reviewed by: Abilio Marquez MD on 08/15/2023 4:50 PM PST Approved by: Abilio Marquez MD on 08/15/2023 4:50 PM PST Station ID: [id number]
== END 2023-08-15 13:04 | disposition home or self-care (01) ==
LOC: DI 13:03
PROVIDERS: ATTEND Nurse Practitioner
DX: R10.2 Pelvic and perineal pain (principal); R10.31 Right lower quadrant pain; M51.37 Other intervertebral disc degeneration, lumbosacral region; Z96.643 Presence of artificial hip joint, bilateral
CPT/HCPCS: 74177; Q9963; Q9967